=== PATIENT | female | born 1990 | race Caucasian/White ===

== ENCOUNTER 2016-06-05 12:43 | Emergency (ER) | payer OTHER ==
[~2016-06-05] VITALS: Ht 160 cm; Wt 72.6 kg
[~2016-06-05 12:43] MED LIST: MULTI-DAY VITA1 EACH PO; NORCO 325 MG-51 TAB PO; TRI-LINYAH TAB1 EACH PO
[2016-06-05 12:45] VITALS: BP 130/73
--- NOTE | 2016-06-05 13:03 | ED GENERAL ADULT ---
History of Present Illness General Chief Complaint: General Adult Stated Complaint: LUMP TO GROIN AREA Vital Signs & Intake/Output Vital Signs & Intake/Output Vital Signs Date Time Temp Pulse Resp B/P Pulse O2 O2 Flow FiO2 Ox Delivery Rate 06/05 1245 97.5 93 20 130/73 100 Room Air Allergies Coded Allergies: Sulfa (Sulfonamide Antibiotics) (HIVES 09/24/15) amoxicillin (From AUGMENTIN) (DIARRHEA, GI UPSET, PT FEELS WORSE THEN WHY SHES TAKING 09/24/15) cefuroxime (From CEFTIN) (HIVES 09/24/15) ciprofloxacin (From CIPRO) (HIVES 09/24/15) clavulanic acid (From AUGMENTIN) (DIARRHEA, GI UPSET, PT FEELS WORSE THEN WHY SHES TAKING 09/24/15) nitrofurantoin (From MACRODANTIN) ("PASS OUT" 09/24/15) Reconcile Medications Multivitamin (Multi-Day Vitamins) 1 EACH TABLET 1 TAB PO DAILY SUPPLEMENT ( Reported) Norgestimate-Ethinyl Estradiol (Tri-Linyah Tablet) 1 EACH TABLET 1 TAB PO DAILY CONTROL (Reported) Triage Note: PT TO ED C/O "LUMP" TO LEFT GROIN NOTICED SATURDAY. HAS BEEN TAKING ADVIIL AND USING HEAT, STATES IT SEEMED TO WORK. THIS AM STATES IT IS MORE PAINFUL. AFEBRILE, DENIES FEVERS AT HOME. : No Patient currently breastfeeds: No Past History Travel History Traveled to [place] past 21 day No Medical History Neurological: NONE EENT: NONE Cardiovascular: NONE Respiratory: NONE Gastrointestinal: NONE Hepatic: NONE Renal: NONE Musculoskeletal: NONE Psychiatric: NONE Endocrine: NONE Surgical History Surgical History: non-contributory Psychosocial History What is your primary language Croatian Tobacco Use: Never used ETOH Use: denies use Illicit Drug Use: denies illicit drug use Departure Departure Condition: Stable Referrals: PATIENT HAS NO PRIMARY CARE DR (PCP/Family) Departure Forms: Customer Survey General Discharge Information
--- NOTE | 2016-06-05 13:35 | ED UPPER/LOWER EXTREMITY COMPL ---
History of Present Illness General Chief Complaint: General Adult Stated Complaint: LUMP TO GROIN AREA Source: patient Exam Limitations: no limitations Vital Signs & Intake/Output Vital Signs & Intake/Output Vital Signs Date Time Temp Pulse Resp B/P Pulse O2 O2 Flow FiO2 Ox Delivery Rate 06/05 1245 97.5 93 20 130/73 100 Room Air Allergies Coded Allergies: Sulfa (Sulfonamide Antibiotics) (HIVES 09/24/15) amoxicillin (From AUGMENTIN) (DIARRHEA, GI UPSET, PT FEELS WORSE THEN WHY SHES TAKING 09/24/15) cefuroxime (From CEFTIN) (HIVES 09/24/15) ciprofloxacin (From CIPRO) (HIVES 09/24/15) clavulanic acid (From AUGMENTIN) (DIARRHEA, GI UPSET, PT FEELS WORSE THEN WHY SHES TAKING 09/24/15) nitrofurantoin (From MACRODANTIN) ("PASS OUT" 09/24/15) Reconcile Medications Multivitamin (Multi-Day Vitamins) 1 EACH TABLET 1 TAB PO DAILY SUPPLEMENT ( Reported) Norgestimate-Ethinyl Estradiol (Tri-Linyah Tablet) 1 EACH TABLET 1 TAB PO DAILY CONTROL (Reported) Triage Note: PT TO ED C/O "LUMP" TO LEFT GROIN NOTICED SATURDAY. HAS BEEN TAKING ADVIIL AND USING HEAT, STATES IT SEEMED TO WORK. THIS AM STATES IT IS MORE PAINFUL. AFEBRILE, DENIES FEVERS AT HOME. Triage Nurses Notes Reviewed? yes Onset: Abrupt Duration: constant Timing: recent history Severity: moderate : No Patient currently breastfeeds: No HPI: Patient is a 25-year-old female who presents to emergency room with a three-day history of concerns of left-sided groin swelling and pain. Patient denies any mechanism injury however states that left leg movements make worse. Denies any fever chills dysuria hematuria abdominal pain nausea vomiting leg swelling or gastrocnemius swelling or pain. Denies any recent travel recent surgery hemoptysis Patient does state that she works out a lot (EVELIA CHRISTOPHER) Past History Travel History Traveled to [place] past 21 day No Medical History Any Pertinent Medical History? none Neurological: NONE EENT: NONE Cardiovascular: NONE Respiratory: NONE Gastrointestinal: NONE Hepatic: NONE Renal: NONE Musculoskeletal: NONE Psychiatric: NONE Endocrine: NONE Surgical History Surgical History: non-contributory Psychosocial History What is your primary language Spanish Tobacco Use: Never used ETOH Use: denies use Illicit Drug Use: denies illicit drug use Family History Hx Contributory? No (EVELIA CHRISTOPHER) Review of Systems Review of Systems Constitutional: Reports: no symptoms. EENTM: Reports: no symptoms. Respiratory: Reports: no symptoms. Cardiovascular: Reports: no symptoms. Gastrointestinal/Abdominal: Reports: no symptoms. Genitourinary: Reports: no symptoms. Musculoskeletal: Reports: see HPI, muscle pain. Skin: Reports: no symptoms. Neurological/Psychological: Reports: no symptoms. Hematologic/Endocrine: Reports: no symptoms. Immunological: Reports: no symptoms. All Other Systems: Reviewed and Negative (EVELIA CHRISTOPHER) Physical Exam Physical Exam General Appearance: no apparent distress, alert, comfortable Neurologic/Tendon: normal sensation, normal motor functions, normal tendon functions, responds to pain, no evidence tendon injury, no pulse deficit Skin: intact, normal color, warm/dry Lymphatic: no anterior cervical fabien Comments: Well-developed well-nourished no apparent distress. HEENT: Atraumatic, extraocular motion intact Neck: Supple, no lymphadenopathy Back: Nontender Respiratory: No respiratory distress Extremities: Left hip- noted muscular soft tissue swelling and tenderness approximately 1 cm along the abductor muscle group No fluctuance no induration no cystlike palpation felt, no erythema no warmth Left hip abduction reproduced pain 5 out of 5 resisted range of motion, full active range of motion noted Left lower extremity no pedal edema no swelling pedal pulse intact less than 2 seconds. Dermatomes intact Neuro: Alert and oriented x3 Psych: Mood affect normal, normal memory normal judgment. (EVELIA CHRISTOPHER) Progress Differential Diagnosis: arterial insufficiency, compartment syndrome, contusion, dislocation, DVT, fracture, gout, septic arthritis, sprain, tendon injury Plan of Care: No concern at this time of DVT due to physical exam findings. Patient does have concerns of muscular involvement of soft tissue tenderness to the left abductor muscle group which was reproducible upon hip abductor movements. Patient had normal steady gait. No symptoms of infection and no concerns of abscess or cellulitis Patient was given primary care doctor for follow-up. (EVELIA CHRISTOPHER) Departure Departure Disposition: HOME OR SELF CARE Condition: Stable Clinical Impression Primary Impression: Left groin pain Referrals: PATIENT HAS NO PRIMARY CARE DR (PCP/Family) Additional Instructions: As discussed please apply ice to the area 20 minutes every 2 hours for pain and inflammation and begin the prescription on meloxicam for pain and inflammation. You have BEEN GIVEN A primary care doctor's appointment in the emergency room, please go to this appointment for follow-up and to establish a doctor. If symptoms worsen return to emergency room. Please try to limit physical activity until your symptoms have improved. Prescription is waiting at your pharmacy Departure Forms: Customer Survey General Discharge Information (EVELIA CHRISTOPHER) PA/LEGUILLON DEBEADER Co-Sign Statement Statement: ED Attending supervision documentation- [] I saw and evaluated the patient. I have also reviewed all the pertinent lab results and diagnostic results. I agree with the findings and the plan of care as documented in the PA's/LEGUILLON DEBEADER's documentation. [X] I have reviewed the ED Record and agree with the PA's/LEGUILLON DEBEADER's documentation. [] Additions or exceptions (if any) to the PAs/LEGUILLON DEBEADER's note and plan are summarized below: [] (NAVEEN SCHMITZ DO
== END 2016-06-05 14:01 ==
LOC: ERH 12:43
DX: R10.32 Left lower quadrant pain (principal)